=== PATIENT | female | born 1975 | race Caucasian/White ===

== ENCOUNTER 2020-07-31 02:08 | Outpatient (CLI) | payer BC, SELFPAY ==
[2020-07-31 20:00] LABS: SARS-CoV-2 RNA PCR Negative
== END 2020-07-31 02:09 | disposition home or self-care (01) ==
LOC: ANHCOVIDDT 02:08
PROVIDERS: Visit Provider Obstetrics & Gynecology
DX: Z01.818 Encounter for other preprocedural examination (principal); Z20.828 Contact with and (suspected) exposure to other viral communicable diseases
CPT/HCPCS: 87635; C9803; U0003

== ENCOUNTER 2020-07-31 07:57 | Outpatient (CLI) | payer BC, SELFPAY ==
--- NOTE | 2020-07-31 08:02 | ECG_ITS ---
Measurements Intervals [place] Rate: 92 P: 51 WY: 140 QRS: 69 QRSD: 81 T: 8 QT: 339 QTc: 420 Interpretive Statements SINUS RHYTHM POSSIBLE LEFT ATRIAL ENLARGEMENT LOW QRS VOLTAGE IN PRECORDIAL LEADS BORDERLINE T WAVE ABNORMALITY- ANTEROLAT/INF LEADS BORDERLINE ECG Electronically Signed On 07-31-2020 8:36:44 STRAIGHTEDGE MACHINE OPERATOR HELPER by Augustine Bolanos D.O.
[2020-07-31 08:57] LABS: Anion Gap 6 mmol/L (8-16); Blood Urea Nitrogen 13 mg/dL (7-17); Calcium 9.4 mg/dL (8.4-10.2); Carbon Dioxide 29 mmol/L (22-30); Chloride 102 mmol/L (98-107); Estimated Glomerular Filt Rate > 60; Glucose 104 mg/dL (65-105); Potassium 4.5 mmol/L (3.4-5.0); Sodium 137 mmol/L (137-145)
== END 2020-07-31 07:58 | disposition home or self-care (01) ==
PROVIDERS: Anesthesiology; PCP Internal Medicine; Visit Provider Obstetrics & Gynecology
DX: N39.3 Stress incontinence (female) (male) (principal); I10 Essential (primary) hypertension; Z01.818 Encounter for other preprocedural examination; R94.31 Abnormal electrocardiogram [ECG] [EKG]
CPT/HCPCS: 36415; 80048; 86850; 86900; 86901; 93005

== ENCOUNTER 2020-08-03 02:13 | Day surgery (SDC) | payer BC, SELFPAY ==
[2020-07-24 14:28] VITALS: BMI 26.6
--- NOTE | 2020-07-28 14:34 | PM.IMHP ---
H&P: HPI History of Present Illness Date/Time: 07/28/20 14:34 Narrative: Russell Mathew is a 45 year old female status post hysterectomy who was admitted for tension-free vaginal tape. She complains of stress urinary incontinence. She has tried [place] exercises without success risks and benefits of this procedure reviewed Review of Systems Review of Systems: All systems reviewed & are unremarkable except as noted in HPI and below PMFSH Social History Social History Smoking packs per day: 0.75 Smoking cigarettes per day: 15.0 Years smoked: 32 Smoking pack-years: 24.00 Tobacco type: cigarettes Substance use: never Spiritual care concerns: No Meds Home Medications and Allergies Home Medications Medication Instructions Recorded Confirmed Type aspirin 81 mg PO DAILY 07/24/20 07/24/20 History levomilnacipran [Fetzima] 80 mg PO DAILY 07/24/20 07/24/20 History levothyroxine 100 mcg PO DAILY 07/24/20 07/24/20 History losartan 100 mg PO DAILY 07/24/20 07/24/20 History spironolactone 50 mg PO DAILY 07/24/20 07/24/20 History Allergies Allergy/AdvReac Type Severity Reaction Status Date / Time No Known Allergies Allergy Unknown Verified 07/24/20 14:43 Exam Const: General: no acute distress Eyes: General: appearance normal, both eyes and all related structures Neck: Neck: supple and no JVD Thyroid: thyroid normal Resp: Effort & Inspection: normal respiratory effort Auscultation: clear to auscultation bilaterally Cardio: Rate: regular rate Rhythm: regular rhythm GI: Inspection: non-distended GI Palp: Yes Soft to palpation, No Tenderness to palpation present (GI) and No Guarding due to palpation present (GI) Auscultation: normal bowel sounds : General: Yes bladder normal to inspection External Female Exam: normal external appearance Speculum Exam - Cervix: Cervix absent Bimanual exam- vagina & uterus: uterus absent Skin: General skin exam: no rashes or lesions noted Extrem: General: normal to inspection and no edema Psych: Mental Status: mental status grossly normal Affect: normal affect Assessment and Plan Additional Plan impression: Stress urinary incontinence Plan: Tension-free vaginal tape
--- NOTE | 2020-07-31 13:20 | WPDANESEPPF ---
Anes - Initial Pre Proc Eval Procedure: Operation Date: 08/03/20 07:30 Proposed Procedures p Tension Free Vaginal Taping - Marin Andino MD Date/Time: 07/31/20 13:20 Surgeon: Marin Andino MD Pre Op Diagnosis: NAGA Patient Data Age: 45 Gender: F Height: 1.6 m Weight: 68.2 kg Allergies Allergy/AdvReac Type Severity Reaction Status Date / Time No Known Allergies Allergy Unknown Verified 08/03/20 06:43 Home Medications Medication Instructions Recorded Confirmed Type aspirin 81 mg PO DAILY 07/24/20 08/03/20 History levomilnacipran [Fetzima] 80 mg PO DAILY 07/24/20 08/03/20 History levothyroxine 100 mcg PO DAILY 07/24/20 08/03/20 History losartan 100 mg PO DAILY 07/24/20 08/03/20 History spironolactone 50 mg PO DAILY 07/24/20 08/03/20 History hydrocodone-acetaminophen [Roca] 1 tablet PO Q4H PRN #30 tablet 08/03/20 Rx Patient hx anesthesia problems: none Family hx anesthesia problems: none [facility] Past Medical History Medical History (Updated 08/03/20 @ 03:42 by Marin Andino MD) Depression Hypertension Surgical History Surgical History (Updated 07/31/20 @ 13:20 by Jordan Cedillo DO) History of appendectomy History of hysterectomy History of thyroidectomy Social History Social History Smoking packs per day: 0.75 Smoking cigarettes per day: 15.0 Years smoked: 32 Smoking pack-years: 24.00 Tobacco type: cigarettes Substance use: never Living arrangements: with family Spiritual care concerns: No Anes - Eval Final PreProcedure Day of Procedure 07/31/20 13:20 Patient weight: overweight Heart: regular rate and rhythm Lungs: clear to auscultation and normal air movement Airway: Mallampati scale class II Neurological: alert and oriented Last oral intake: >/= 8 hours ASA classification: III Emergent: no Anesthetic plan: proceed Anesthesia type and monitoring: general LMA and standard monitoring Informed Consent: The patient's anesthetic plan and its attendant risks and benefits were discussed with the patient/family/POA. Questions were solicited and answers provided to the satisfaction of the patient/family/POA.
[2020-08-03] VITALS (7 sets, daily range): BP systolic 127–164; BP diastolic 82–96; PULSE 71–94; RESP 16–26; TEMP 36.2–36.5; O2SAT 98–100; BMI 27.1
--- NOTE | 2020-08-03 03:41 | WPDHPUPDATE1 ---
History and Physical Update Update Date/Time: 08/03/20 03:41 History and Physical has been reviewed, including an updated exam of the patient. There are NO changes in the patient's condition. Risks, benefits, and alternatives have been discussed and questions answered. Patient agrees to proceed with procedure.
[2020-08-03] MEDS: LACTATED RINGERS 1,000 ML 30 ML IV CONT (07:19)
[2020-08-03] MEDS: ceFAZolin 2 GM/D5W 50 ML 2 GM/50 ML BAG IVPB (07:25)
[2020-08-03] MEDS: KETOROLAC 30 MG/ML VIAL (*BKC) 15 MG IV PUSH (07:58)
--- NOTE | 2020-08-03 08:01 | P.OP_ITS ---
Procedure Note - Detailed Date of procedure: 08/03/20 Pre-op diagnosis: NAGA Surgeon: Marin Andino MD postop diagnosis: Stress urinary incontinence Procedure: Tension-free vaginal tape Cystoscopy EBL: 10cc Anesthesia: LMA Findings: Absent uterus and cervix. Complications: None Description of procedure: The patient was prepped and draped the normal sterile fashion placed in the dorsal lithotomy position. Excellent general anesthesia weighted speculum placed posterior fornix of vagina. An 18 Mongolian catheter was placed in the bladder. Mid urethral subcu incision was made the lateral bladder spaces entered by blunt dissection. Catheter guide was placed retracted laterally the right retropubic bladder space entered 45 degree angle [id number] through the fascia and skin. Urethra was retracted the opposite direction the retro pubic bladder space was empty was entered from right at a 45 Rim upto30? in the skin and fascia. The catheter was removed and the 70degree cystoscope was inserted no injury seen this was then brought to the tightness of an open P clamp. The plastic was cut and removed. The suprapubic portions were and cut on the tape at skin. The vagina was closed with 3 0 chromic. The catheter was then removed again the patient was awakened. She went to recovery in satisfactory condition. All sponge, needle, instrument counts were correct. There were no immediate complications
== END 2020-08-03 09:45 | disposition home or self-care (01) ==
PROVIDERS: PCP Internal Medicine; Visit Provider Obstetrics & Gynecology
PROC: 0TSD0ZZ Reposition Urethra, Open Approach (ICD-10-PCS; CPT 57288; principal; 2020-08-03 07:30)
DX: N39.3 Stress incontinence (female) (male) (principal); I10 Essential (primary) hypertension; Z79.82 Long term (current) use of aspirin; F17.210 Nicotine dependence, cigarettes, uncomplicated; Z90.710 Acquired absence of both cervix and uterus
CPT/HCPCS: 57288; A9270; C1771; J0690; J1100; J1885; J2250; J2405; J2704; J3010; J7030; J7120

== ENCOUNTER → 2021-06-04 10:14 | Outpatient (CLI) | payer OTHER, SELFPAY ==
--- NOTE | ~2021-06-04 | US_ITS ---
EXAMINATION: US right upper quadrant DATE: 06/04/2021 10:50 INDICATION: Abnormal liver function tests. TECHNIQUE: Multiple grayscale and Doppler ultrasound images of the abdomen were obtained. COMPARISON: CT abdomen and pelvis 06/06/2019 FINDINGS: Abdominal aorta is normal in caliber. Inferior vena cava is normal. The visualized portions of the head, body, and tail of the pancreas are normal. The liver is normal without focal lesion. No liver surface nodularity. There is normal flow in main portal vein. The gallbladder is normal in siz e. No gallstones or gallbladder wall thickening. There is no sonographic Arroyo sign. The common duct is normal and measures 4 mm. Right kidney is normal. IMPRESSION: 1. Normal right upper quadrant ultrasound. Reviewed, dictated and finalized at location A.
== END ==
PROVIDERS: PCP Internal Medicine; Visit Provider Internal Medicine
DX: R74.8 Abnormal levels of other serum enzymes (principal)
CPT/HCPCS: 76705

== ENCOUNTER 2021-08-19 11:57 | Outpatient (CLI) | payer OTHER, SELFPAY ==
[2021-08-19 13:24] LABS: Influenza Control Valid (Valid); SARS-CoV-2 Ag Negative (Negative)
== END 2021-08-19 11:58 | disposition home or self-care (01) ==
LOC: CHSLAB 11:57
PROVIDERS: PCP Internal Medicine; Visit Provider Internal Medicine
DX: J06.9 Acute upper respiratory infection, unspecified (principal)
CPT/HCPCS: 87081; 87426; 87804; 87880; C9803

== ENCOUNTER 2021-08-20 14:00 | Outpatient (CLI) | payer OTHER, SELFPAY ==
[2021-08-20 15:27] LABS: SARS-CoV-2 Ag Positive (Negative)
[2021-08-20 15:28] LABS: Influenza Control Valid (Valid)
== END 2021-08-20 14:01 | disposition home or self-care (01) ==
LOC: CHSLAB 14:02
PROVIDERS: PCP Internal Medicine; Visit Provider Internal Medicine
DX: U07.1 COVID-19 (principal); J06.9 Acute upper respiratory infection, unspecified
CPT/HCPCS: 87081; 87426; 87804; 87880; C9803

== ENCOUNTER 2024-04-26 17:03 | Outpatient (CLI) | payer OTHER, SELFPAY ==
[2024-04-26 17:37] LABS: Mean Corpuscular HGB Conc 34.1 g/dL (32-36); Mean Corpuscular Hemoglobin 32.9 pg (27.0-31.0); Mean Corpuscular Volume 96.5 fL (78.0-102.0); Mean Platelet Volume 10.6 fl (9.2-11.8); Platelet Count Result 214 K/mm3 (150-420); Red Blood Count 4.56 M/mm3 (4.20-5.40); Red Cell Distribution Width 12.7 % (11.6-14.4); White Blood Count 11.4 K/mm3 (4.8-10.8)
[2024-04-26 18:13] LABS: Alanine Aminotransferase 31 U/L (14-59); Albumin Level 3.7 g/dL (3.4-5.0); Alkaline Phosphatase 88 U/L (46-116); Anion Gap 14 mmol/L (4-12); Aspartate Amino Transferase 16 U/L (15-37); Bilirubin,Total 0.4 mg/dL (0.00-1.00); Blood Urea Nitrogen 9 mg/dL (7-18); CRP 6.4 mg/dL (0.0-0.9); Calcium 8.8 mg/dL (8.5-10.1); Carbon Dioxide 24 mmol/L (21-32); Chloride 100 mmol/L (98-108); Estimated Glomerular Filt Rate > 60; Glucose 103 mg/dL (70-99); Osmolality Calculated 284 mOsm/kg (285-295); Potassium 3.5 mmol/L (3.5-5.1); Sodium 138 mmol/L (136-145); Total Protein 7.1 g/dL (6.4-8.2)
[2024-04-26 18:50] LABS: Erythrocyte Sedimentation Rate 16 mm/hr (0-15)
[2024-04-29 14:12] LABS: Scleroderma 70 Antibody >8.0 POS AI (<1.0 NEG)
[2024-04-29 17:13] LABS: Immunoglobulin E 186 kU/L (<OR=114)
[2024-04-30 12:14] LABS: ANCA Screen NEGATIVE (NEGATIVE)
[2024-05-02 15:59] LABS: Histone Antibody <1.0 U
== END 2024-04-26 17:04 | disposition home or self-care (01) ==
LOC: CHSLAB 17:08
PROVIDERS: PCP Internal Medicine; Visit Provider Internal Medicine
DX: R21 Rash and other nonspecific skin eruption (principal)
CPT/HCPCS: 36415; 80053; 82785; 83516; 85027; 85652; 86036; 86038; 86039; 86140; 86235

== ENCOUNTER 2024-06-27 11:40 | Outpatient (CLI) | payer OTHER, SELFPAY ==
[2024-07-02 07:53] LABS: C1 Esterase Inhibitor >100 % (>=68)
== END 2024-06-27 11:41 | disposition home or self-care (01) ==
LOC: CHSLAB 11:42
PROVIDERS: PCP Internal Medicine; Visit Provider Internal Medicine Rheumatology
DX: T78.3XXA Angioneurotic edema, initial encounter (principal)
CPT/HCPCS: 36415; 86160

== ENCOUNTER 2025-06-13 09:36 | Outpatient (CLI) | payer OTHER, SELFPAY ==
--- OUTSIDE RECORDS SUMMARY | 2025-06-13 10:09 | XMS_ITS | Encounter Summary ---
Author Organization [employer] Address [address] [place] [address] Care Team Providers Care Patient Biller Name Role Phone Unavailable Primary Care Provider Unavailabl e Encounter Details Date Type Department Care Team (Late st Contact Info) Description 06/18/2006 [facility] [address] 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
--- OUTSIDE RECORDS SUMMARY | 2025-06-13 10:09 | XMS_ITS | Encounter Summary ---
Author Organization [employer] Address [address] [place] [address] Care Team Providers Care Jalousie Installer Name Role Phone Unavailable Primary Care Provider Unavailabl e Encounter Details Date Type Department Care Team (Late st Contact Info) Description 07/12/2006 [facility] [address] 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
--- OUTSIDE RECORDS SUMMARY | 2025-06-13 10:09 | XMS_ITS | Patient Health Record ---
Author Organization [facility] [employer] Address [address] [address] Care Team Providers Care Sales Host Name Role Phone Rikki Escobar Unavailable [phone] Reason For Referral No Information Plan Of Treatment No Information
--- OUTSIDE RECORDS SUMMARY | 2025-06-13 10:09 | XMS_ITS | Encounter Summary ---
Author Organization [employer] Address [address] [place] [address] Care Team Providers Care Carburetor Repairer Name Role Phone Unavailable Primary Care Provider Unavailabl e Encounter Details Date Type Department Care Team (Late st Contact Info) Description 10/12/2006 [facility] [address] 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
--- OUTSIDE RECORDS SUMMARY | 2025-06-13 10:09 | XMS_ITS | Clinical Summary ---
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
--- OUTSIDE RECORDS SUMMARY | 2025-06-13 10:09 | XMS_ITS | Clinical Summary ---
Author Organization [facility] Address [address] [place] [address] Care Team Providers Care Feather Maker Name Role Phone Ilia Arteaga MD Primary Care Provider + [phone] Allergies Active Allergy Reactions Criticality Noted Date Comments Acetaminophen Nausea only,Vomiting Reaction: Nausea, Vomiting, Hydrocodone Nausea only,Vomiting Reaction: Nausea, Vomiting, Hydrocodone-Acetaminophe n Medications levothyroxine (SYNTHROID) 112 mcg tablet 03/18/2021 Active spironolactone (ALDACTONE) 50 mg tablet 05/21/2021 Active losartan (COZAAR) 100 mg tablet 05/21/2021 Activ e Fetzima 80 mg capsule,extended release 24 hr 05/03/2021 Activ e Active Problems Problem Noted Date Diagnosed Date Abnormal findings on diagnostic imaging of breas t 2015 Surgical History Surgery Date Site/Laterality Comments OTHER SURGICAL HISTORY D&C THYROIDECTOMY Thyroidectomy APPENDECTOMY Appendectomy Medical History Medical History Date Comments Disorder of thyroid Thyroid dise ase Family History Medical History Relation Name Comments Other Father Alive and well; Other Mother arthalgias,myal gias, fatigue; Relation Name Status Comments Father Alive Mother Social History Tobacco Use Types Packs/Day Years Used Date Smoking Tobacco: Every Day Smokeless Tobacco: Never Alcohol Use Standard Drinks/Week Comments Yes 0 (1 standard drink = 0.6 oz pur e alcohol) Comments Unknown Sex and Gender Information Value Date Recorded Sex Assigned at Not on file Legal Sex Female 12:24 AM SPINDLE SANDER Gender Identity Not on file Sexual Orientation Not on file Obstetrics History Plan of Treatment Not on file Insurance [employer] [facility] Care Teams Feather Maker Relationship Specialty Start Date End Date Ilia Arteaga MD [address] [place] [address] PCP - General 02/26/07
--- OUTSIDE RECORDS SUMMARY | 2025-06-13 10:09 | XMS_ITS | Encounter Summary ---
Author Organization [facility] Address [address] [place] [address] Care Team Providers Care Stock Driver Name Role Phone Unavailable Primary Care Provider Unavailabl e Encounter Details Date Type Department Care Team (Late st Contact Info) Description 05/22/2006 Outpatient [facility] [address] [place] [address] 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
== END 2025-06-13 09:37 | disposition home or self-care (01) ==
PROVIDERS: PCP Internal Medicine; Visit Provider Nurse Practitioner Family
DX: N30.90 Cystitis, unspecified without hematuria (principal)
CPT/HCPCS: 87077; 87086; 87186